=== PATIENT | female | born 1980 | race Two or more races ===

== ENCOUNTER → 2020-09-16 | Outpatient (REF) | payer OTHER | LOC: M SFHCLERA 08:48 | PROVIDERS: ATTEND Nurse Practitioner Family | DX: N89.8 Other specified noninflammatory disorders of vagina (principal); R35.0 Frequency of micturition | CPT/HCPCS: 81002; 81025; 87070; 87086; G0463 ==

== ENCOUNTER → 2020-12-20 | Outpatient (CLI) | payer OTHER ==
[2020-12-20 10:14] LABS: ALBUMIN 4.4 GM/DL (3.2-5.2); ALT/SGPT 21 U/L (12-78); BILIRUBIN,TOTAL 0.6 MG/DL (0.2-1.0); BLOOD UREA NITROGEN 13 MG/DL (7-18); CALCIUM LEVEL 9.1 MG/DL (8.5-10.1); CARBON DIOXIDE LEVEL 21 MEQ/L (21-32); CHLORIDE LEVEL 103 MEQ/L (98-107); CHOLESTEROL LEVEL 212 MG/DL (<200); CHOLESTEROL RISK RATIO 3.475 (<5); CREATININE FOR GFR 0.72 MG/DL (0.55-1.30); GLOMERULAR FILTRATION RATE > 60.0 (>60); GLUCOSE, FASTING 89 MG/DL (70-100); HDL CHOLESTEROL 61 MG/DL (>40); LDL CHOLESTEROL 137 MG/DL (<100); NON-HDL-C 151 MG/DL; SODIUM LEVEL 132 MEQ/L (136-145); TOTAL PROTEIN 8.4 GM/DL (6.4-8.2); TRIGLYCERIDES LEVEL 71 MG/DL (<150)
[2020-12-20 10:30] LABS: HEMOGLOBIN A1c 5.6 %; POTASSIUM SERUM 5.6 MEQ/L (3.5-5.1)
== END ==
LOC: M LAB 09:20
PROVIDERS: ATTEND Student in an Organized Health Care Education/Training Program
DX: I10 Essential (primary) hypertension (principal)

== ENCOUNTER → 2020-12-22 | Outpatient (REF) | payer OTHER | LOC: M SFHCLERA 10:15 | PROVIDERS: ATTEND Nurse Practitioner Family | DX: R89.9 Unspecified abnormal finding in specimens from other organs, systems and tissues (principal) ==

== ENCOUNTER → 2020-12-28 | Outpatient (CLI) | payer OTHER ==
[2020-12-28 09:30] LABS: BLOOD UREA NITROGEN 16 MG/DL (7-18); CALCIUM LEVEL 9.2 MG/DL (8.5-10.1); CARBON DIOXIDE LEVEL 25 MEQ/L (21-32); CHLORIDE LEVEL 107 MEQ/L (98-107); GLOMERULAR FILTRATION RATE > 60.0 (>60); GLUCOSE, FASTING 77 MG/DL (70-100); POTASSIUM SERUM 4.1 MEQ/L (3.5-5.1); SODIUM LEVEL 138 MEQ/L (136-145)
== END ==
LOC: M LAB 08:24
PROVIDERS: ATTEND Nurse Practitioner Family
DX: L98.9 Disorder of the skin and subcutaneous tissue, unspecified (principal); I10 Essential (primary) hypertension

== ENCOUNTER → 2021-04-09 | Outpatient (REF) | payer OTHER | LOC: M SFHCWAGY 14:05 | PROVIDERS: ATTEND Advanced Practice Midwife | DX: Z12.4 Encounter for screening for malignant neoplasm of cervix (principal) ==

== ENCOUNTER → 2021-04-29 | Outpatient (CLI) | payer OTHER ==
--- NOTE | 2021-04-29 13:18 | REP ---
INDICATION: UNSPECIFIED INJURY OF RIGHT FOOT, INITIAL ENCOUNTER. COMPARISON: None. TECHNIQUE: Four views of the right foot. FINDINGS: Four views of the right foot demonstrate overall normal mineralization. No fracture or subluxation is seen. Soft tissues are unremarkable. No opaque foreign body noted. IMPRESSION: Negative right foot series. <Electronically signed by Jose Rafael Michaels > 04/29/21 [id number]
== END ==
LOC: M RAD 12:58
PROVIDERS: ATTEND Nurse Practitioner Family
DX: S99.921A Unspecified injury of right foot, initial encounter (principal); W18.30XA Fall on same level, unspecified, initial encounter; Y92.009 Unspecified place in unspecified non-institutional (private) residence as the place of occurrence of the external cause

== ENCOUNTER 2021-08-13 14:01 | Outpatient (RCR) | payer OTHER | END 2021-08-28 | LOC: M PT 14:01 | PROVIDERS: ATTEND Student in an Organized Health Care Education/Training Program | DX: M54.2 Cervicalgia (principal) ==

== ENCOUNTER → 2021-11-12 | Outpatient (CLI) | payer OTHER | LOC: M WHC 15:04 | PROVIDERS: ATTEND Advanced Practice Midwife | DX: N92.6 Irregular menstruation, unspecified (principal) ==

== ENCOUNTER 2022-02-03 07:41 | Outpatient (RCR) | payer OTHER | END 2022-02-25 | LOC: M PT 07:41 | PROVIDERS: ATTEND Student in an Organized Health Care Education/Training Program | DX: M54.50 Low back pain, unspecified (principal) ==

== ENCOUNTER 2022-04-08 10:10 | Outpatient (RCR) | payer OTHER | END 2022-04-28 | LOC: M PT 10:10 | PROVIDERS: ATTEND Student in an Organized Health Care Education/Training Program | DX: M54.50 Low back pain, unspecified (principal) ==

== ENCOUNTER 2022-05-25 09:05 | Outpatient (RCR) | payer OTHER | END 2022-05-28 | LOC: M PT 09:05 | PROVIDERS: ATTEND Student in an Organized Health Care Education/Training Program | DX: M54.50 Low back pain, unspecified (principal) ==

== ENCOUNTER 2022-06-24 09:53 | Outpatient (RCR) | payer OTHER | END 2022-06-28 | LOC: M PT 09:53 | PROVIDERS: ATTEND Student in an Organized Health Care Education/Training Program | DX: M54.50 Low back pain, unspecified (principal) ==

== ENCOUNTER 2022-07-15 10:00 | Outpatient (RCR) | payer OTHER | END 2022-07-28 | LOC: M PT 10:00 | PROVIDERS: ATTEND Student in an Organized Health Care Education/Training Program | DX: M54.50 Low back pain, unspecified (principal) ==

== ENCOUNTER → 2022-11-19 | Outpatient (REF) | payer OTHER | LOC: M SFHCWAGY 17:18 | PROVIDERS: ATTEND Obstetrics & Gynecology | DX: Z12.4 Encounter for screening for malignant neoplasm of cervix (principal) | CPT/HCPCS: 87624; G0123; G0463 ==

== ENCOUNTER → 2023-01-20 | Outpatient (REF) | payer OTHER | LOC: M SFHCWAGY 15:40 | PROVIDERS: ATTEND Advanced Practice Midwife | DX: R87.810 Cervical high risk human papillomavirus (HPV) DNA test positive (principal); R87.610 Atypical squamous cells of undetermined significance on cytologic smear of cervix (ASC-US) ==